=== PATIENT | female | born 1980 | race Caucasian/White ===

== ENCOUNTER 2019-04-20 17:33 | Emergency (ER) | payer BC ==
[2019-04-20] MEDS ORDERED: SODIUM CHLORIDE 0.9% 1,000 ML IV ONE (17:46)
[2019-04-20] MEDS ORDERED: diphenhydrAMINE INJ 50 MG/ML VIAL IVP STA (17:46)
[2019-04-20] MEDS ORDERED: METOCLOPRAMIDE 10 MG/2 ML VIAL IVP STA (17:46)
--- NOTE | 2019-04-20 17:48 | ED Physician Documentation ---
PD HPI HEADACHE - Stated complaint Stated Complaint: N/V, SANTANA - Chief complaint Chief Complaint: Neuro - History obtained from History obtained from: Patient - History of Present Illness Timing - onset: Other (38-year-old woman with history of migraines presents with a headache that started early this morning, gradual onset and throbbing associated with photophobia and subsequently developed vomiting. It similar to prior migraines. She is visiting from out of town. No associated fever or neck stiffness. No recent travel.) Review of Systems Constitutional: denies: Fever, Chills Nose: denies: Rhinorrhea / runny nose, Congestion Throat: denies: Sore throat Cardiac: denies: Chest pain / pressure, Palpitations PD PAST MEDICAL HISTORY - Present Medications Home Medications: Ambulatory Orders Medication Instructions Recorded Confirmed No Known Home Medications 04/20/19 04/20/19 - Allergies Allergies/Adverse Reactions: Allergies Allergy/AdvReac Type Severity Reaction Status Date / Time acetaminophen [From Vicodin] AdvReac Nausea Verified 04/20/19 17:40 codeine AdvReac Nausea Verified 04/20/19 17:40 hydrocodone [From Vicodin] AdvReac Nausea Verified 04/20/19 17:40 PD ED PE NORMAL - Vitals Vital signs reviewed: Yes - General General: Alert and oriented X 3, No acute distress - HEENT HEENT: PERRL, EOMI - Neck Neck: Supple, no meningeal sign, No bony TTP - Abdomen Abdomen: Soft, Non tender - Derm Derm: Normal color, Warm and dry - Extremities Extremities: No deformity, No tenderness to palpate, Normal ROM s pain, No edema, No calf tenderness / cord - Neuro Neuro: Alert and oriented X 3, No motor deficit, No sensory deficit, Normal speech Results - Vitals Vitals: Vital Signs - 24 hr 04/20/19 04/20/19 17:37 17:40 Temperature 37 C 37.0 C Heart Rate 108 H 108 H Respiratory 18 18 Rate Blood Pressure 131/89 H 131/89 H O2 Saturation 99 99 Oxygen O2 Source Room air PD MEDICAL DECISION MAKING - ED course ED course: The headache is gradual in onset and similar to prior headaches. As such I doubt subarachnoid hemorrhage. There are no infectious symptoms such as fever or stiff neck to make me suspect meningitis. No carbon monoxide exposure by history. After the administration of IV Reglan and Benadryl and IV fluids she was completely resolved and passed an oral challenge. Departure - Departure Disposition: 01 Home, Self Care Clinical Impression: Migraine Qualifiers: Migraine type: with aura Status migrainosus presence: with status migrainosus Intractability: not intractable Qualified Code(s): G43.101 - Migraine with aura, not intractable, with status migrainosus Condition: Good Record reviewed to determine appropriate education?: Yes Instructions: ED Headache Migraine Comments: Call your doctor to arrange a follow-up appointment, make the next available appointment. In the interim, return anytime if worse or if new symptoms develop.
[2019-04-20 18:56] VITALS: BP 131/73
== END 2019-04-20 18:55 | disposition home or self-care (01) ==
LOC: ED 17:33
DX: G43.101 Migraine with aura, not intractable, with status migrainosus (principal)
CPT/HCPCS: 96361; 96374; 99283; J1200; J2765